=== PATIENT | male | born 1980 | race Hispanic/Latino ===

== ENCOUNTER 2020-03-07 13:46 | Inpatient (IN) | payer BC, OTHER ==
[~2020-03-07] VITALS: Ht 180.3 cm; Wt 194.3 kg
[2020-03-07 14:09] LABS: APPEARANCE,URINE Clear (CLEAR); BILIRUBIN,URINE Negative (NEGATIVE); COLOR,URINE Yellow (YELLOW); GLUCOSE, URINE (UA) Negative (NEGATIVE); KETONES,URINE Negative (NEGATIVE); LEUKOCYTE ESTERASE ,URINE Negative (NEGATIVE); NITRATE,URINE Negative (NEGATIVE); OCCULT BLOOD,URINE Negative (NEGATIVE); PROTEIN,URINE Negative (NEGATIVE); UROBILINOGEN,URINE 0.2 mg/dL (0.2-1.0)
[2020-03-07 14:19] LABS: BASOPHILS % (AUTO) 0.6 % (0.0-5.0); LYMPHOCYTES % (AUTO) 14.1 % (21.0-51.0); MEAN CORPUSCULAR HEMOGLOBIN 31.2 pg (27.0-33.0); MEAN CORPUSCULAR HGB CONC 34.5 g/dL (32.0-36.0); MEAN CORPUSCULAR VOLUME 90.3 fL (79-99); MONOCYTES % (AUTO) 5.1 % (3.0-13.0); NEUTROPHILS % (AUTO) 77.9 % (40.0-77.0); PLATELET COUNT (AUTO) 185 K/uL (130-400); RED BLOOD CELL COUNT(AUTO) 4.65 MIL/uL (4.50-6.20); RED CELL DISTRIBUTION WIDTH 14.3 % (11.0-15.5); WHITE BLOOD COUNT (AUTO) 11.9 K/uL (4.8-10.8)
[2020-03-07 14:33] LABS: CREATININE 1.1 mg/dL (0.5-1.5); POTASSIUM 3.8 mmol/L (3.5-5.1)
[2020-03-07 14:36] LABS: ALBUMIN 3.6 g/dL (3.5-5.0); BILIRUBIN,TOTAL 0.9 mg/dL (0.2-1.0); TOTAL PROTEIN, SERUM 7.5 g/dL (6.0-8.3)
[2020-03-07] MEDS ORDERED: KETOROLAC TROMETHAMINE 30MG/ML ONE (15:11)
[2020-03-07] MEDS ORDERED: FAMOTIDINE/PF 20 MG/2 ML VIAL IV ONE (15:12)
[2020-03-07] MEDS ORDERED: ASPIRIN 325 MG TABLET ONE (16:37)
[2020-03-07] MEDS ORDERED: NITROGLYCERIN 1GM/1 INCH PACKET TD ONE (16:37)
[2020-03-07 18:01] LABS: AMPHET/METH SCREEN,URINE NEGATIVE (NEGATIVE); BARBITURATE SCREEN, URINE NEGATIVE (NEGATIVE); BENZODIAZEPINES SCREEN,URINE NEGATIVE (NEGATIVE); CANNABINOID SCREEN,URINE NEGATIVE (NEGATIVE); COCAINE SCREEN,URINE NEGATIVE (NEGATIVE); OPIATE SCREEN,URINE NEGATIVE (NEGATIVE); PHENCYCLIDINE SCREEN,URINE NEGATIVE (NEGATIVE)
[2020-03-07] MEDS ORDERED: MORPHINE SULFATE 2 MG/ML 1ML SYG IVP PRN (19:00)
[2020-03-07] MEDS ORDERED: GLUCAGON 1MG KIT 1 MG ML IM PRN (19:00)
[2020-03-07] MEDS ORDERED: DEXTROSE 50%-WATER 50 ML DISP.SYRIN IV PRN (19:00)
[2020-03-07 19:25] LABS: HEMOGLOBIN A1C 8.1 % (4.0-6.0)
[2020-03-07 20:01] LABS: TROPONIN I 0.13 ng/mL (0.00-0.06)
[2020-03-07] MEDS: ATORVASTATIN CALCIUM 20 MG TABLET PO SCH (21:00)
[2020-03-07] MEDS: INSULIN HUMULIN R 100 UNIT/ML 3ML SQ SCH (21:00)
[2020-03-07] MEDS ORDERED: ATORVASTATIN CALCIUM 20 MG TABLET ONE (21:15)
[2020-03-07] MEDS ORDERED: METOPROLOL TARTRATE 25 MG TAB ONE (21:15)
[2020-03-07] MEDS ORDERED: FAMOTIDINE 20MG TAB 20 MG TAB ONE (23:24)
[2020-03-08 03:43] LABS: BASOPHILS % (AUTO) 0.7 % (0.0-5.0); EOSINOPHILS % (AUTO) 3.6 % (0.0-8.0); HEMATOCRIT 39.9 % (42-54); LYMPHOCYTES % (AUTO) 21.1 % (21.0-51.0); MEAN CORPUSCULAR HEMOGLOBIN 30.6 pg (27.0-33.0); MEAN CORPUSCULAR HGB CONC 33.6 g/dL (32.0-36.0); MEAN CORPUSCULAR VOLUME 91.1 fL (79-99); MONOCYTES % (AUTO) 6.2 % (3.0-13.0); NEUTROPHILS % (AUTO) 67.9 % (40.0-77.0); PLATELET COUNT (AUTO) 182 K/uL (130-400); RED BLOOD CELL COUNT(AUTO) 4.38 MIL/uL (4.50-6.20); RED CELL DISTRIBUTION WIDTH 14.2 % (11.0-15.5); WHITE BLOOD COUNT (AUTO) 10.1 K/uL (4.8-10.8)
[2020-03-08 04:21] LABS: ALBUMIN 3.1 g/dL (3.5-5.0); CREATININE 0.8 mg/dL (0.5-1.5); POTASSIUM 3.1 mmol/L (3.5-5.1); TOTAL PROTEIN, SERUM 6.7 g/dL (6.0-8.3); TROPONIN I 0.13 ng/mL (0.00-0.06)
[2020-03-08] MEDS ORDERED: POTASSIUM CHLORIDE 10% ELIXIR 20 MEQ/15 ML UDCUP ONE (04:42)
[2020-03-08] MEDS: INSULIN HUMULIN R 100 UNIT/ML 3ML SQ SCH ×4 (07:30→19:52)
[2020-03-08 08:58] VITALS: BP 153/85
[2020-03-08] MEDS: FAMOTIDINE 20MG TAB 20 MG TAB PO SCH ×2 (09:25→21:19)
[2020-03-08] MEDS: METOPROLOL TARTRATE 25 MG TAB PO SCH ×2 (09:25→21:00)
[2020-03-08] MEDS: ENOXAPARIN SODIUM 40 MG/0.4 ML SYRINGE SQ SCH (09:26)
[2020-03-08] MEDS: ASPIRIN 81MG TAB.CHEW PO SCH (09:26)
[2020-03-08 10:39] LABS: TROPONIN I 0.15 ng/mL (0.00-0.06)
[2020-03-08 11:39] VITALS: BP 121/70
[2020-03-08 15:53] VITALS: BP 159/104
[2020-03-08] MEDS ORDERED: CLOPIDOGREL BISULFATE 300 MG TAB PO SCH (18:10)
[2020-03-08] MEDS ORDERED: LACTULOSE 20 GM/30 ML UDCUP PO PRN (19:15)
[2020-03-08 19:30] VITALS: BP 112/67
[2020-03-08] MEDS: ATORVASTATIN CALCIUM 20 MG TABLET PO SCH (21:19)
[2020-03-08 23:47] VITALS: BP 112/56
[2020-03-09 04:00] VITALS: BP 108/58
[2020-03-09] MEDS: INSULIN HUMULIN R 100 UNIT/ML 3ML SQ SCH ×4 (07:13→20:50)
[2020-03-09 08:00] VITALS: BP 107/64
[2020-03-09] MEDS: ISOSORBIDE MONO 30MG TAB SR PO SCH (08:50)
[2020-03-09] MEDS: FAMOTIDINE 20MG TAB 20 MG TAB PO SCH ×2 (08:50→20:48)
[2020-03-09] MEDS: ASPIRIN 81MG TAB.CHEW PO SCH (08:50)
[2020-03-09] MEDS: METOPROLOL TARTRATE 25 MG TAB PO SCH ×2 (08:50→20:50)
[2020-03-09] MEDS: CLOPIDOGREL BISULFATE 75 MG TAB PO SCH (08:51)
[2020-03-09] MEDS: ENOXAPARIN SODIUM 40 MG/0.4 ML SYRINGE SQ SCH (08:52)
[2020-03-09] MEDS: ACETAMINOPHEN 325 MG TAB PO PRN ×2 (11:43→18:41)
[2020-03-09] MEDS: HYDROCHLOROTHIAZIDE 25 MG TABLET PO SCH (11:45)
[2020-03-09 12:00] VITALS: BP 111/63
[2020-03-09 16:00] VITALS: BP 105/43
[2020-03-09 19:39] VITALS: BP 126/49
[2020-03-09] MEDS: ATORVASTATIN CALCIUM 20 MG TABLET PO SCH (20:48)
[2020-03-09 23:51] VITALS: BP 112/62
[2020-03-10 03:59] VITALS: BP 110/57
[2020-03-10 06:00] LABS: POTASSIUM 3.8 mmol/L (3.5-5.1)
[2020-03-10] MEDS: INSULIN HUMULIN R 100 UNIT/ML 3ML SQ SCH ×2 (07:30→11:17)
[2020-03-10 08:24] VITALS: BP 141/83
[2020-03-10] MEDS: HYDROCHLOROTHIAZIDE 25 MG TABLET PO SCH (09:07)
[2020-03-10] MEDS: ENOXAPARIN SODIUM 40 MG/0.4 ML SYRINGE SQ SCH (09:07)
[2020-03-10] MEDS: ISOSORBIDE MONO 30MG TAB SR PO SCH (09:07)
[2020-03-10] MEDS: ASPIRIN 81MG TAB.CHEW PO SCH (09:07)
[2020-03-10] MEDS: METOPROLOL TARTRATE 25 MG TAB PO SCH (09:08)
[2020-03-10] MEDS: FAMOTIDINE 20MG TAB 20 MG TAB PO SCH (09:08)
[2020-03-10] MEDS: CLOPIDOGREL BISULFATE 75 MG TAB PO SCH (09:08)
[2020-03-10] MEDS ORDERED: POLYETHYLENE GLYCOL 3350 17 GM POWD.PACK PO PRN (10:00)
[2020-03-10] MEDS ORDERED: EZET10TA13 PO (11:25)
[2020-03-10] MEDS ORDERED: HYDR25TA PO (11:25)
[2020-03-10 11:39] VITALS: BP 124/72
== END 2020-03-10 13:25 | disposition home or self-care (01) | DRG 391 ==
LOC: EDH 13:46 → OBSVTOIN 18:54 → EDHIP 18:54 → 4AH 03-08 08:54
PROVIDERS: ADMIT Hospitalist; ATTEND Hospitalist
DX: K21.9 Gastro-esophageal reflux disease without esophagitis (principal); I21.A1 Myocardial infarction type 2; Z68.43 Body mass index [BMI] 50.0-59.9, adult; R07.89 Other chest pain; E66.01 Morbid (severe) obesity due to excess calories; I10 Essential (primary) hypertension; E11.65 Type 2 diabetes mellitus with hyperglycemia; E78.5 Hyperlipidemia, unspecified; J45.909 Unspecified asthma, uncomplicated; I89.0 Lymphedema, not elsewhere classified; K29.70 Gastritis, unspecified, without bleeding; G47.33 Obstructive sleep apnea (adult) (pediatric); R00.1 Bradycardia, unspecified; Z20.828 Contact with and (suspected) exposure to other viral communicable diseases; Z82.3 Family history of stroke; Z82.49 Family history of ischemic heart disease and other diseases of the circulatory system; Z83.49 Family history of other endocrine, nutritional and metabolic diseases; Z82.5 Family history of asthma and other chronic lower respiratory diseases; Z83.3 Family history of diabetes mellitus
CPT/HCPCS: 36415; 71045; 80048; 80053; 80061; 80305; 81003; 82550; 82948; 83036; 83605; 83874; 83880; 84145; 84484; 85025; 87040; 87426; 87804; 93005; 93306; 93356; G0378; J1650; J1885; J3490; U0003

== ENCOUNTER 2020-10-12 22:59 | Emergency (ER) | payer BC ==
[~2020-10-12] VITALS: Ht 180.3 cm; Wt 195.0 kg
[~2020-10-12 22:59] MED LIST: EZET10TA13 PO; HYDR25TA PO
[2020-10-12] MEDS ORDERED: KETOROLAC 60 MG VIAL (30MG/ML) ONE (23:24)
[2020-10-12] MEDS ORDERED: KETOROLAC 60 MG VIAL (30MG/ML) IM ONE (23:30)
[2020-10-12] MEDS ORDERED: NAPR-1180 PO (23:35)
[2020-10-12 23:40] VITALS: BP 159/95
== END 2020-10-12 23:44 | disposition home or self-care (01) ==
LOC: EDH 22:59
DX: M77.8 Other enthesopathies, not elsewhere classified (principal); I10 Essential (primary) hypertension; E66.9 Obesity, unspecified; Z79.1 Long term (current) use of non-steroidal anti-inflammatories (NSAID); Z88.0 Allergy status to penicillin; Z79.899 Other long term (current) drug therapy; Z68.44 Body mass index [BMI] 60.0-69.9, adult
CPT/HCPCS: 73070; 96372; 99284; J1885

== ENCOUNTER 2024-01-23 19:46 | Emergency (ER) | payer SELFPAY ==
[~2024-01-23] VITALS: Ht 180.3 cm; Wt 204.1 kg
[~2024-01-23 19:46] MED LIST changes: +AEC81 PO; +CETI10TA57 PO; +CIPOTIC AU; -EZET10TA13 PO; +EZET10TA48 PO; +FLUT16H EN; +LOSA25TA41 PO; +MECL-244 PO; +METO25 PO
[2024-01-23] MEDS: CYCLOBENZAPRINE HCL 10 MG TABLET PO ONE (20:33)
[2024-01-23] MEDS: ketOROlac 60 MG VIAL (30MG/ML) IM ONE (20:33)
[2024-01-23 21:12] LABS: BASOPHILS # (AUTO) 0.07 K/uL (0.00-0.20); BASOPHILS % (AUTO) 0.7 % (0.0-5.0); EOSINOPHILS # (AUTO) 0.33 K/uL (0.00-0.70); EOSINOPHILS % (AUTO) 3.4 % (0.0-8.0); HEMATOCRIT 41.5 % (42-54); IMMATURE GRANULOCYTE ABSOLUTE 0.06 K/uL (0-1); LYMPHOCYTES # (AUTO) 2.4 K/uL (1.0-4.8); LYMPHOCYTES % (AUTO) 24.1 % (21.0-51.0); MEAN CORPUSCULAR HEMOGLOBIN 31.7 pg (27.0-33.0); MEAN CORPUSCULAR HGB CONC 34.7 g/dL (32.0-36.0); MEAN CORPUSCULAR VOLUME 91.4 fL (79-99); MONOCYTES # (AUTO) 0.6 K/uL (0.1-1.0); MONOCYTES % (AUTO) 6.4 % (3.0-13.0); NEUTROPHILS # (AUTO) 6.4 K/uL (1.8-7.7); NEUTROPHILS % (AUTO) 64.8 % (40.0-77.0); PLATELET COUNT (AUTO) 154 K/uL (130-400); RED BLOOD CELL COUNT(AUTO) 4.54 MIL/uL (4.50-6.20); RED CELL DISTRIBUTION WIDTH 13.8 % (11.0-15.5); WHITE BLOOD COUNT (AUTO) 9.8 K/uL (4.8-10.8)
[2024-01-23 21:21] LABS: CREATININE 0.9 mg/dL (0.5-1.3); POTASSIUM 3.9 mmol/L (3.5-5.1)
[2024-01-23 22:08] VITALS: BP 110/64; PULSE 70; RESP 20; TEMP 98.1; O2SAT 97
[2024-01-23] MEDS ORDERED: CYCL10TA16 PO (22:39)
[2024-01-23] MEDS ORDERED: IBUP-2070 PO (22:39)
== END 2024-01-23 22:51 | disposition home or self-care (01) ==
LOC: EDH 19:46
DX: S16.1XXA Strain of muscle, fascia and tendon at neck level, initial encounter (principal); E11.65 Type 2 diabetes mellitus with hyperglycemia; R79.89 Other specified abnormal findings of blood chemistry; E78.00 Pure hypercholesterolemia, unspecified; I11.9 Hypertensive heart disease without heart failure; Z79.82 Long term (current) use of aspirin; Z79.899 Other long term (current) drug therapy; Z88.0 Allergy status to penicillin; Z98.890 Other specified postprocedural states; X58.XXXA Exposure to other specified factors, initial encounter; Y93.89 Activity, other specified; Y92.89 Other specified places as the place of occurrence of the external cause; Y99.8 Other external cause status
CPT/HCPCS: 99284; 84484 ×2; 80048; 85025; 36415; 96372; 93005; J1885